=== PATIENT | female | born 1995 | race Caucasian/White ===

== ENCOUNTER 2021-08-28 09:46 | Emergency (ER) | payer OTHER ==
[~2021-08-28 09:46] MED LIST: COLACE 100MG C100 MG PO
[2021-08-28 10:37] LABS: HEMOGLOBIN 13.7 gm/dl (12.3-15.3); RED BLOOD COUNT 4.54 M/UL (4.00-5.10); WHITE BLOOD COUNT 4.9 K/UL (4.5-11.0)
[2021-08-28 10:55] LABS: BUN/CREATININE RATIO 21 (0-10)
[2021-08-28] MEDS ORDERED: ZITHROMAX250 MG PO (11:35)
[2021-08-28] MEDS ORDERED: PREDNISONE 20 M20 MG PO (11:46)
== END 2021-08-28 11:57 | disposition home or self-care (01) ==
LOC: ER1 09:46
PROVIDERS: Student in an Organized Health Care Education/Training Program
DX: J45.909 Unspecified asthma, uncomplicated (principal)
CPT/HCPCS: 71045; 80053; 82550; 82553; 83874; 84484; 85025; 85379; 93005; 99285